=== PATIENT | male | born 1945 | race Caucasian/White ===

== ENCOUNTER 2024-08-04 08:31 | Emergency (ER) | payer OTHER ==
[2024-08-04 09:43] LABS: Absolute Basophils 0.1 K/uL (0-0.5); Absolute Eosinophils 0.2 K/uL (0-0.5); Absolute Lymphocytes (CBC) 1.8 K/uL (0.7-4.9); Absolute Neutrophil 4.7 K/uL (1.8-8.0); Basophils % 1.1 % (0-1.3); Eosinophils % 2.3 % (0-4.4); Hematocrit 42.1 % (39.6-49.0); Hemoglobin 13.9 g/dL (13.6-17.9); MCH 32.5 pg (27.0-35.0); MCHC 32.9 g/dL (32.0-36.0); MCV 98.7 fL (80-100); MPV 9.1 fL (7.6-11.3); Monocytes % 12.5 % (3.3-12.3); Neutrophils % 61.1 % (41.7-73.7); Nucleated Red Blood Cells % 0.1 % (0-0); Platelets 238 thou/uL (152-406); RBC Red Blood Cell Count 4.27 M/uL (4.33-5.43); Red Cell Distribution Width 14.3 % (12.1-15.2)
[2024-08-04] MEDS ORDERED: NA CHLORIDE 0.9% 1,000 ML ONE (09:52)
[2024-08-04 10:11] LABS: Albumin 3.9 g/dL (3.4-5.0); Albumin/Globulin Ratio 1.1 (1.1-1.8); Anion Gap 10.4 mEq/L (5.0-15.0); Bilirubin Total 0.6 mg/dL (0.2-1.0); Globulin 3.7 g/dL (2.3-3.5); Potassium 4.4 mEq/L (3.5-5.1); Protein, Total 7.6 g/dL (6.4-8.2)
--- NOTE | 2024-08-04 10:39 | RAD REPORT ---
EXAM: CTA of the abdomen and pelvis with bilateral runoffs HISTORY: Chest pain and back pain RT LEG PAIN COMPARISON: None TECHNIQUE: Multiple contiguous axial images were obtained a CTA of the abdomen and pelvis with contra st per angiographic protocol. This involves 3D reconstructions, MIPs, volume rendered images and/or shaded surface rendering. One or more of the following dose reduction techniques were used: Automated exposure control, adjustment of the mA and/or kV according to patient size, and/or iterative reconstruction. Unless otherwise specified, incidental findings do not require dedicated imaging foll ow-up. Sagittal and coronal 3-D MIP reformats were performed. FINDINGS: DESCENDING THORACIC AORTA: Included infeior aspect demonstrates normal caliber without evidence of d issection or aneurysmal dilatation. ABDOMINAL AORTA: Moderate atherosclerosis seen abdominal aorta without aneurysm. At the level of the aortic bifurcation there is presumed bypass grafting present from the aorta to both femoral arteries. Right-sided graft appears occluded. Left-sided graft appears patent. [place] external iliac arteries heavily calcified and occluded. Internal iliac arteries heavily calcified with some patency of flow demonstrated bilaterally. CELIAC TRUNK: Patent with mild ostial plaque noted. SMA: Patent with mild ostial plaque noted. RADHA: Patent RENAL ARTERIES: Accessory small right renal artery noted. Mild ostial plaque bilaterally without evid ence of significant renal artery stenosis. BILATERAL RUNOFF: Reconstitution of flow is noted presumably via collateral vessels into the right femoral artery. The right femoral artery is diminutive with multifocal atherosclerotic plaquing. [place] femoral artery is patent there is moderate stenosis at the level of the adductor hiatus on the right. [place] al artery is diminutive with multifocal atherosclerosis but patent. Three-vessel runoff is noted, with primary flow to the right foot via posterior tibial artery. No evidence of acute occlusion. The left common femoral artery proximally is patent. There is moderate 50% stenosis at the level of the left-sided graft anastomosis to the femoral artery. Multifocal atherosclerotic change seen throughout the left superficial femoral artery with at least 50% stenosis distally noted at the level of the adductor hiatus. Left popliteal artery also demonstrates significant focal stenosis estimated at 80-90%. Three-vessel runoff is seen however diminutive. The primary flow to the foot is via the posterior tibial artery. There is no finding to suspect acute occlusion. LIVER: Unremarkable. Several gallstones are noted. SPLEEN: Unremarkable. PANCREAS: Unremarkable. KIDNEYS: Unremarkable. ADRENALS: Unremarkable. BOWEL: Significant diverticulosis coli seen involving the sigmoid colon. There is mild surrounding fa t stranding.. RETROPERITONEUM: No lymphadenopathy. BONES: Degenerative changes in the spine. ADDITIONAL FINDINGS: Small to moderate fat-containing umbilical hernia. 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 Moderately mult ifocal multisegmental atherosclerotic plaquing involving both lower extremity runoff vessels as detailed. No acute occlusion seen. Significant diverticulosis coli involving the sigmoid colon with mild surrounding inflammatory findin gs. Indolent diverticulitis is possible. Advise correlation with clinical signs and symptoms and possible colonoscopy if not recently performed. Cholelithiasis.
--- NOTE | 2024-08-04 11:36 | ER ---
Nurse's Notes [facility] Name: River Lozano Age: 79 yrs Sex: Male : 1945 Arrival Date: 08/04/2024 Time: 08:31 Bed 4 Private MD: Diagnosis: Chronic occlusion of right femoral artery Presentation: 08/04 08:52 Chief complaint: Right thigh pain that radiates to calf x 4 days. Coronavirus screen: hb At this time, the client does not indicate any symptoms associated with coronavirus-19. Ebola Screen: No symptoms or risks identified at this time. Initial Sepsis Screen: Does the patient meet any 2 criteria? No. Patient's initial sepsis screen is negative. Does the patient have a suspected source of infection? No. Patient's initial sepsis screen is negative. Risk Assessment: Do you want to hurt yourself or someone else? Patient reports no desire to harm self or others. Onset of symptoms was July 31, 2024. 08:52 Method Of Arrival: Ambulatory hb 08:52 Acuity: [place] 3 hb Historical: - Allergies: 08:53 PENICILLINS; hb - PMHx: 08:53 Hypertension; hb - Immunization history:: Adult Immunizations unknown. - Infectious Disease History:: Denies. - Family history:: not pertinent. - Social history:: Smoking status: unknown. Screenin:32 [facility] ED Fall Risk Assessment (Adult) History of falling in the last 3 months, ph including since admission No falls in past 3 months (0 pts) Confusion or Disorientation No (0 pts) Intoxicated or Sedated No (0 pts) Impaired Gait Yes (1 pt) Mobility Assist Device Used Yes (1 pt) Altered Elimination No (0 pt) Score/Fall Risk Level 0 - 2 = Low Risk Oriented to surroundings, Maintained a safe environment, Hourly rounding (assess needs \T\ fall precautionary measures) done, Used ambulatory aids as needed (educated on \T\ assisted with). Abuse screen: Denies threats or abuse. Denies injuries from another. Nutritional screening: No deficits noted. Tuberculosis screening: No symptoms or risk factors identified. Assessment: 09:33 General: Appears in no apparent distress. comfortable, well groomed, Behavior is calm, ph cooperative, appropriate for age. Pain: Complains of pain in right leg. Neuro: Level of Consciousness is awake, alert, obeys commands, Oriented to person, place, time, situation. Cardiovascular: Capillary refill < 3 seconds in bilateral fingers Patient's skin is warm and dry. Respiratory: Airway is patent Respiratory effort is even, unlabored. Derm: Skin is pink, warm \T\ dry. Vital Signs: 08:52 BP 154 / 82; Pulse 60; Resp 16; Temp 98.2(O); Pulse Ox 100% on R/A; Weight 80.29 kg; hb Height 5 ft. 6 in. ; Pain 2/10; 11:00 BP 138 / 72; Pulse 61; Resp 18; Temp 98; Pulse Ox 98% on R/A; ph 08:52 Body Mass Index 28.57 (80.29 kg, 167.64 cm) hb 08:52 Pain Scale: Adult hb ED Course: 08:40 Patient arrived in ED. sj2 08:50 Brody Ramos MD is Attending Physician. rt 08:53 Triage completed. hb 08:54 Arm band placed on. hb 09:32 Elif Mack RN is Primary Nurse. ph 09:32 Patient has correct armband on for positive identification. Bed in low position. Call ph light in reach. Side rails up X 1. Pulse ox on. NIBP on. Door closed. Noise minimized. Warm blanket given. 09:34 Initial lab(s) drawn, by me, sent to lab. Inserted saline lock: 20 gauge in right ph antecubital area, using aseptic technique. Blood collected. Flushed with 10 mL NS. 10:14 Abdomen Angio In Process Unspecified. EDMS 10:14 Pelvis Angio In Process Unspecified. EDMS 10:14 Lower Ext Angio In Process Unspecified. EDMS 11:43 No provider procedures requiring assistance completed. IV discontinued, intact, ph bleeding controlled, No redness/swelling at site. Pressure dressing applied. Administered Medications: 10:05 Drug: NS 0.9% IV 1000 ml IV at 1 bolus Per protocol; to be given as a bolus over 60 ph minutes Route: IV; Rate: 1 bolus; Site: right antecubital; 11:05 Follow up: Response: No adverse reaction; IV Status: Completed infusion; IV Intake: ph 1000ml Medication: 09:32 VIS not applicable for this client. ph Intake: 11:05 IV: 1000ml; Total: 1000ml. ph Outcome: 11:35 Discharge ordered by . rt 11:43 Patient left the ED. ph 11:43 Discharged to home ambulatory, ph 11:43 Condition: good 11:43 Discharge instructions given to patient, Instructed on discharge instructions, follow up and referral plans. Demonstrated understanding of instructions, follow-up care, Signatures: Dispatcher [employer] Elif Nicholson RN RN Xiao Burden RN RN hb [place], Ryan, MD MD rt Yodit Reynolds 2
--- NOTE | 2024-08-04 11:36 | EDPHYS ---
Physician Documentation [facility] Name: River Lozano Age: 79 yrs Sex: Male : 1945 Arrival Date: 08/04/2024 Time: 08:31 Bed 4 Private MD: ED Physician Brody Ramos HPI: 08/04 09:21 This 79 yrs old Male presents to ER via Ambulatory with complaints of Leg Pain. rt 09:21 Patient presents to the ED with a right thigh pain that radiates distally has been rt present for the past week. Patient has had similar symptoms when he had an arterial occlusion about 10 years ago. Patient reports mild pain at rest, worsening pain with exertion. Denies of acute complaints at this time, symptoms are moderate severity, no other aggravating or elevating factors. Denies injury.. Historical: - Allergies: 08:53 PENICILLINS; hb - PMHx: 08:53 Hypertension; hb - Immunization history:: Adult Immunizations unknown. - Infectious Disease History:: Denies. - Family history:: not pertinent. - Social history:: Smoking status: unknown. ROS: 09:21 Constitutional: Negative for fever, chills, and weight loss, Cardiovascular: Negative rt for chest pain, palpitations, and edema, Respiratory: Negative for shortness of breath, cough, wheezing, and pleuritic chest pain, Abdomen/GI: Negative for abdominal pain, nausea, vomiting, diarrhea, and constipation, Skin: Negative for injury, rash, and discoloration, 09:21 MS/extremity: Positive for pain, Negative for injury or acute deformity, Exam: 09:21 Musculoskeletal/extremity: Faint dorsalis pedis pulse on the right, foot is not rt appreciably cool compared to the contralateral side. No focal areas of tenderness, no deformity. 09:21 Constitutional: This is a well developed, well nourished patient who is awake, alert, rt and in no acute distress. Head/Face: Normocephalic, atraumatic. Chest/axilla: Normal chest wall appearance and motion. Nontender with no deformity. No lesions are appreciated. Cardiovascular: Regular rate and rhythm with a normal S1 and S2. No gallops, murmurs, or rubs. Normal PMI, no JVD. No pulse deficits. Respiratory: Lungs have equal breath sounds bilaterally, clear to auscultation and percussion. No rales, rhonchi or wheezes noted. No increased work of breathing, no retractions or nasal flaring. Abdomen/GI: Soft, non-tender, with normal bowel sounds. No distension or tympany. No guarding or rebound. No evidence of tenderness throughout. Vital Signs: 08:52 BP 154 / 82; Pulse 60; Resp 16; Temp 98.2(O); Pulse Ox 100% on R/A; Weight 80.29 kg; hb Height 5 ft. 6 in. ; Pain 2/10; 11:00 BP 138 / 72; Pulse 61; Resp 18; Temp 98; Pulse Ox 98% on R/A; ph 08:52 Body Mass Index 28.57 (80.29 kg, 167.64 cm) hb 08:52 Pain Scale: Adult hb MDM: 08:54 Medical Screening Exam initiated rt 11:43 Differential diagnosis: Claudication, chronic arterial occlusion, acute arterial rt occlusion. Data reviewed: vital signs, nurses notes, lab test result(s), radiologic studies. Independent interpretation of the following test(s) in the Emergency Department CT Scan: My interpretation is Distal flow seen on my interpretation of CT scan images. 12:27 Consideration of Admission/Observation Patient with chronic appearing occlusion with rt good collaterals, no acute occlusion requiring emergent vascular surgery intervention, patient to follow-up with vascular surgery as an outpatient.. Care significantly affected by the following chronic conditions: Hypertension. Counseling: I had a detailed discussion with the patient and/or guardian regarding the historical points, exam findings, and any diagnostic results supporting the discharge/admit diagnosis, lab results, radiology results, the need for outpatient follow up, to return to the emergency department if symptoms worsen or persist or if there are any questions or concerns that arise at home. Response to treatment: the patient's symptoms have markedly improved after treatment. 08/04 09:30 Order name: Comprehensive Metabolic Panel EDMI 08/04 09:30 Order name: CBC with Automated Diff EDMI 08/04 09:49 Order name: CBC with Automated Diff; Complete Time: 11:01 EDMI 08/04 10:11 Order name: Comprehensive Metabolic Panel; Complete Time: 11:01 EDMI 08/04 09:59 Order name: Abdomen Angio EDMI 08/04 09:59 Order name: Pelvis Angio EDMI 08/04 09:59 Order name: Lower Ext Angio EDMS 08/04 10:41 Order name: CT; Complete Time: 11: EDMS 08/04 10:41 Order name: CT; Complete Time: 11: EDMS 08/04 10:41 Order name: CT; Complete Time: 11: EDMS Administered Medications: 10:05 Drug: NS 0.9% IV 1000 ml IV at 1 bolus Per protocol; to be given as a bolus over 60 ph minutes Route: IV; Rate: 1 bolus; Site: right antecubital; 11:05 Follow up: Response: No adverse reaction; IV Status: Completed infusion; IV Intake: ph 1000ml Disposition Summary: 08/04/24 11:35 Discharge Ordered Notes: Location: Home rt Problem: an ongoing problem rt Symptoms: have improved rt Condition: Stable rt Diagnosis - Chronic occlusion of right femoral artery rt Followup: rt - With: Private Physician - When: 2 - 3 days - Reason: Discharge Instructions: - Discharge Summary Sheet rt - Intermittent Claudication rt Forms: - Medication Reconciliation Form rt - Antibiotic Education rt - Prescription Opioid Use rt - Patient Portal Instructions rt - Leadership Thank You Letter rt Signatures: Dispatcher [employer] Elif Nicholson, RN RN ph Xiao Burden RN RN Brody Ramos MD MD rt Corrections: (The following items were deleted from the chart) 09:10 09:10 Abdomen Angio+CT.RAD.BRZ ordered. EDMS EDMS 09:10 09:10 CBC+H.LAB.BRZ ordered. EDMS EDMS 09:10 09:10 COMPREHENSIVE METABOLIC PANEL+C.LAB.BRZ ordered. EDMS EDMS 09:24 09:24 CBC+H.LAB.BRZ ordered. EDMS EDMS 09:24 09:24 COMPREHENSIVE METABOLIC PANEL+C.LAB.BRZ ordered. EDMS EDMS
[2024-08-07 01:12] VITALS: BP 154/82; TEMP 98.2; O2SAT 100
== END 2024-08-04 11:43 | disposition home or self-care (01) ==
LOC: ER 08:31
DX: I74.3 Embolism and thrombosis of arteries of the lower extremities (principal)
CPT/HCPCS: 85025; 36415; 82565; 80053; 73706; 72191; 74175; 96360; 99284; Q9967; J7030